=== PATIENT | female | born 1990 | race Caucasian/White ===

== ENCOUNTER → 2016-09-16 | Outpatient (CLI) | payer BC ==
[~2016-09-16] MED LIST: HYDR-3516 PO; PERC5TAB12 PO; PRENTAB72 PO
--- NOTE | 2016-09-17 14:24 | EKG ---
Date Performed: 09/16/2016 Time Performed: 13:19:41 PTAGE: 25 years EKG: Sinus rhythm NORMAL ECG NO PREVIOUS TRACING DOCTOR: Neelima Lee Interpretating Date/Time 09/17/2016 14:23:32
== END ==
LOC: HCAV 12:48
PROVIDERS: ATTEND Obstetrics & Gynecology
DX: E66.9 Obesity, unspecified (principal)
CPT/HCPCS: 93005

== ENCOUNTER → 2016-09-26 | Outpatient (CLI) | payer BC ==
[2016-09-26 12:11] LABS: HEMATOCRIT 42.3 % (35.0-46.0); MEAN CELL VOLUME 86.4 FL (80.0-100.0); MEAN CORPUSCULAR HEMOGLOBIN 29.2 PG (27.0-34.0); MEAN CORPUSCULAR HGB CONC 33.8 % (32.0-36.0); PLATELET COUNT 290 TH/MM3 (150-450); REVIEW FLAG FINAL; WHITE BLOOD COUNT 9.3 TH/MM3 (4.0-11.0)
[2016-09-26 12:25] LABS: BACTERIA, URINE FEW /hpf; BLOOD, URINE NEG (NEG); COMMENT (UR) CULT NOT INDICATED; CULTURE IF INDICATED CULT NOT INDICATED; GLUCOSE,URINE NEG (NEG); KETONE, URINE NEG (NEG); MUCUS URINE FEW /lpf (OCC); NITRITE,URINE NEG (NEG); SQUAMOUS EPITHELIAL CELL URINE 7 /hpf (0-5); URINE COLOR LIGHT-YELLOW (YELLW/STRAW)
[2016-09-26 12:45] LABS: ALKALINE PHOSPHATASE 132 U/L (45-117); ALT (GPT) 44 U/L (10-53); ANION GAP 5 MEQ/L (5-15); AST (GOT) 20 U/L (15-37); BICARBONATE 26.6 MEQ/L (21.0-32.0); BLOOD UREA NITROGEN 7 MG/DL (7-18); CHLORIDE 107 MEQ/L (98-107); GLOMERULAR FILTRATION RATE 93 ML/MIN (>89); GLUCOSE,FASTING 88 MG/DL (74-99); SODIUM (NA) 139 MEQ/L (136-145); TOTAL BILIRUBIN ADULT 0.4 MG/DL (0.2-1.0)
== END ==
LOC: CPRE 10:16
PROVIDERS: ATTEND Obstetrics & Gynecology
DX: N92.0 Excessive and frequent menstruation with regular cycle (principal); Q51.820 Cervical duplication; Z01.812 Encounter for preprocedural laboratory examination
CPT/HCPCS: 36415; 80053; 81001; 85027

== ENCOUNTER → 2016-09-30 | Day surgery (SDC) | payer BC ==
[~2016-09-30] VITALS: Ht 165.1 cm; Wt 122.2 kg
[~2016-09-30] MED LIST changes: +ACETAMINOPHEN 1000 MG/100 ML VIAL IV ONE; +ACETAMINOPHEN/HYDROcodone 325 MG/5 MG TAB ONE; +CHLORHEXIDINE GLUCONATE 2 % 1 PACK (2 CLOTHS) TOPICAL PRN; +DEXAMETHASONE SOD PHOS 4 MG/ML VIAL ONE; +DICLOFENAC SODIUM 37.5 MG/ML VIAL IV PUSH ONE; +DO NOT ADM ANY ANTICOAGULANT DRUGS PRN; +FAMOTIDINE 20 MG/2 ML VIAL ONE; +INSULIN HUMAN REGULAR 1,000 UNITS/10 ML VIAL SQ PRN; +LACTATED RINGER'S 1000 ML INJ 1,000 ML IV ONE; +LACTATED RINGER'S 1000 ML IV PRN; +METOPROLOL TARTRATE 25 MG TAB PO PRN; +MIDAZOLAM HCL 2 MG/2 ML VIAL ONE; +ONDANSETRON HCL 4 MG/2 ML VIAL IV PUSH ONE; -PERC5TAB12 PO; +POVIDONE IODINE 5% (ANTISEPSIS KIT) 4 APPLICATIONS EACH NARE PRN; -PRENTAB72 PO; +PROPOFOL 200 MG/20 ML AMP IV ONE; +SODIUM CHLORID 0.9% 500 ML IV PRN; +fentaNYL CITRATE 250 MCG/5 ML AMP ONE
[2016-09-30 11:32] VITALS: BP 133/75; PULSE 74; RESP 20; TEMP 98.3; O2SAT 97
[2016-09-30 14:55] VITALS: BP 142/83; PULSE 74; RESP 20; TEMP 97.7; O2SAT 98
--- NOTE | 2016-10-03 11:08 | MP ---
cc: Babak CEDEÑO MD DATE OF SURGERY: 09/30/2016. PREOPERATIVE DIAGNOSIS: 1. Severe dysmenorrhea. 2. Menorrhagia. 3. Double cervix with a vaginal septum. POSTOPERATIVE DIAGNOSIS: 1. Menorrhagia. 2. Dysmenorrhea. 3. Vaginal septum. 4. No double cervix. 5. No double uterus. OPERATIVE PROCEDURE PERFORMED: 1. Examination under anesthesia. 2. Dilation and curettage of the uterus. 3. Hysteroscopic exam. SURGEON: Babak Cedeño MD. SUPERVISOR ADVICE: David Mckeon3. ANESTHESIA: General. FINDINGS: On examination under anesthesia, she did in fact have a vaginal septum; however, it seemed like it was in the lower two-thirds of the vagina. The top apex of the vagina had no septum and this was missed on previous exams. There was indeed once cervix and one uterus that sounded to 8 cm. The bimanual exam was normal. There were no polyps or endometrial lesions. The adnexa was negative for masses. COMPLICATIONS: None. COUNTS: Correct. ESTIMATED BLOOD LOSS: Minimal. DISPOSITION: The patient tolerated the procedure well and went to the recovery room in good condition. INDICATIONS FOR THE PROCEDURE: This is a patient who is having multiple endocrinologic problems. She has gained 50 pounds in the last several months. She has been noted to have a pituitary tumor on MRI. Her bleeding may be subsequent to that. DESCRIPTION OF THE PROCEDURE IN DETAIL: The patient was taken to the operating room and identified by name band and verbally and given a general anesthetic, prepped and draped in usual sterile fashion for vaginal surgery. Time-out was taken and the urinary bladder was drained with the in-and-out cath. A speculum was placed in the right side of the vaginal septum and it was noted at the beginning that there was no septum at the apex of the vagina and there indeed was one cervix. We confirmed this with the exam under anesthesia. The anterior lip of the cervix was grasped with a single-tooth tenaculum. The cervix was serially dilated and the hysteroscope was inserted. The entire endometrial cavity was carefully visualized. There were no polyps or submucous myomas. The uterus sounded to 8 cm and the uterine cavity looked normal. The hysteroscopic exam was not perfect because of the inability to see the entire endometrial cavity; however, I felt like I got a pretty good look. At this point, the hysteroscope was removed and a sharp curettage followed and that was sent for pathologic evaluation. Again there were no polyps or myomas. At this point we went up the other side of the vagina and there was no other cervix. The cervix we had previously seen with the puncture vasquez from the tenaculum was the only other cervix I saw. It was felt that she did not have two cervices at all and that the septum was just in the lower part of the vagina. At this point, once I had made sure that she had only one cervix and one uterus, we hysteroscoped her and again it was suboptimal but I did not see any polyps or any cause for her menorrhagia. At this point, all instruments were removed. She tolerated the procedure well and went to the recovery room in good condition. R. MD NERY Milan/DIPTI /2:15 PM /10:56 AM
== END | disposition home or self-care (01) ==
LOC: HSDC 10:52
PROVIDERS: ATTEND Obstetrics & Gynecology
DX: N92.0 Excessive and frequent menstruation with regular cycle (principal); N94.6 Dysmenorrhea, unspecified; Q52.10 Doubling of vagina, unspecified
CPT/HCPCS: 00952; 58558; 88305; J0131; J1100; J1130; J2250; J2405; J3010; J7120